=== PATIENT | female | born 1975 | race Caucasian/White ===

== ENCOUNTER 2018-04-03 06:40 | Inpatient (IN) | payer BC ==
[~2018-04-03 06:40] MED LIST: Bupivacaine 0.5%/EPINEPHrine 1:200,000 50 ML MDV ONE
[2018-04-03] MEDS ORDERED: Scopolamine 1.5 MG Transdermal Patch TOP SCH (07:30)
[2018-04-03] MEDS ORDERED: cefOXitin 2 GM in Sodium Chloride 0.9% 50 ML IV ONE (07:30)
[2018-04-03] MEDS ORDERED: Celecoxib 200 MG Cap PO ONE (07:30)
[2018-04-03] MEDS ORDERED: Dextrose 5%-Lactated Ringers 1,000 ML IV SCH (07:30)
[2018-04-03] MEDS ORDERED: Acetaminophen 500 MG Tab PO ONE (07:30)
[2018-04-03] MEDS ORDERED: Gabapentin 300 MG Cap PO ONE (07:30)
[2018-04-03] MEDS ORDERED: Midazolam 1 MG/ML 2 ML SDV ONE (08:41)
[2018-04-03] MEDS ORDERED: fentaNYL 250 MCG/5 ML SDV ONE (08:41)
[2018-04-03] MEDS ORDERED: Succinylcholine 200 MG/10 ML MDV ONE (08:42)
[2018-04-03] MEDS ORDERED: Ondansetron 4 MG/2 ML SDV ONE (08:42)
[2018-04-03] MEDS ORDERED: Dexamethasone 4 MG/ML SDV ONE (08:42)
[2018-04-03] MEDS ORDERED: Rocuronium 50 MG/5 ML Vial ONE (08:42)
[2018-04-03] MEDS ORDERED: Glycopyrrolate 0.2 MG/ML 5 ML MDV ONE (08:42)
[2018-04-03] MEDS ORDERED: Propofol 200 MG/20 ML SDV ONE (08:42)
[2018-04-03] MEDS ORDERED: Neostigmine Methylsulfate 1 MG/ML 5 ML Syringe ONE (08:42)
[2018-04-03] MEDS ORDERED: Lidocaine 2% 100 MG/5 ML Syringe IVPUSH ONE (08:45)
[2018-04-03] MEDS ORDERED: Ropivacaine 42 ML, Dexamethasone 8 MG, EPINEPHrine 0.4 MG, Sodium Chloride 0.9% 35.6 ML NERVRT ONE ×4 (08:45)
[2018-04-03] MEDS ORDERED: Ketamine 500 MG/5 ML MDV IV ONE (08:45)
[2018-04-03] MEDS: Lidocaine 0.4%/D5W 2 GM/500 ML BAG IV SCH ×2 (09:22→12:04)
[2018-04-03] MEDS ORDERED: Meropenem 500 MG SDV ONE (09:29)
[2018-04-03] MEDS ORDERED: hydrOXYzine HCl 100 MG/2 ML SDV IM ONE (10:40)
[2018-04-03] MEDS ORDERED: fentaNYL 100 MCG/2 ML SDV IVPUSH ONE (10:40)
[2018-04-03] MEDS ORDERED: diphenhydrAMINE 50 MG/ML SDV IVPUSH PRN (12:00)
[2018-04-03] MEDS ORDERED: Metoclopramide 10 MG/2 ML SDV IVPUSH PRN (12:00)
[2018-04-03] MEDS ORDERED: Labetalol 20 MG/4 ML Syringe IVPUSH PRN (12:00)
[2018-04-03] MEDS ORDERED: Ondansetron 4 MG/2 ML SDV IVPUSH PRN (12:00)
[2018-04-03] MEDS: Dextrose 5%-Lactated Ringers 1,000 ML IV SCH (12:04)
[2018-04-03] MEDS: Gabapentin 250 MG/5 ML Solution ML 470 ML Bottle PO SCH ×2 (13:09→20:01)
[2018-04-03] MEDS: hydrOXYzine HCl 100 MG/2 ML SDV IM PRN (13:09)
[2018-04-03] MEDS: Pantoprazole 40 MG Vial IVPUSH SCH (14:03)
[2018-04-03] MEDS: cefOXitin 2 GM in Sodium Chloride 0.9% 50 ML IV SCH ×2 (14:06→20:01)
[2018-04-03] MEDS: Acetaminophen Soln 650 MG/20.3 ML UD Cup PO SCH ×2 (16:05→22:04)
[2018-04-03] MEDS: MVI, Adult with Vitamin K 10 ML, Thiamine 100 MG, Chromium/Copper/Mang/Selen/Zn 1 ML in... IV SCH ×4 (17:49)
[2018-04-03] MEDS: Heparin Sodium 5,000 Units/ML Vial SUBCUT SCH (17:51)
[2018-04-04] MEDS: Dextrose 5%-Lactated Ringers 1,000 ML IV SCH ×3 (00:07→14:49)
[2018-04-04] MEDS: hydrOXYzine HCl 100 MG/2 ML SDV IM PRN (01:59)
[2018-04-04] MEDS: cefOXitin 2 GM in Sodium Chloride 0.9% 50 ML IV SCH (02:00)
[2018-04-04] MEDS ORDERED: Iohexol 647 MG/ML 50 ML SDV PO STA (03:38)
[2018-04-04] MEDS: Acetaminophen Soln 650 MG/20.3 ML UD Cup PO SCH ×4 (04:28→22:15)
[2018-04-04] MEDS: Heparin Sodium 5,000 Units/ML Vial SUBCUT SCH ×2 (06:13→17:57)
[2018-04-04] MEDS ORDERED: Ondansetron 4 MG Tab.DIS PO PRN (07:36)
--- NOTE | 2018-04-04 08:56 | CR ---
UGI wo KUB HISTORY: eval R -Y GBP FINDINGS: After administration of oral contrast, upright views were obtained. Post operative changes gastric bypass. Surgical drains in place. No evidence for leak. Contrast passes freely into proximal small bowel loops. Surgical clips right upper quadrant. IMPRESSION: No evidence for leak or obstruction.
[2018-04-04] MEDS: Celecoxib 200 MG Cap PO SCH (08:59)
[2018-04-04] MEDS: SCOPOLAMINE PATCH CHECK TOP SCH (09:01)
[2018-04-04] MEDS: Gabapentin 250 MG/5 ML Solution ML 470 ML Bottle PO SCH ×3 (09:10→20:27)
[2018-04-04] MEDS: hydrOXYzine HCl 25 MG Tab PO PRN ×2 (14:48→19:13)
[2018-04-04] MEDS: Pantoprazole 40 MG Vial IVPUSH SCH (14:48)
[2018-04-04] MEDS: MVI, Adult with Vitamin K 10 ML, Thiamine 100 MG, Chromium/Copper/Mang/Selen/Zn 1 ML in... IV SCH ×4 (16:16)
--- NOTE | 2018-04-04 16:40 | PN ---
DATE OF SERVICE: 04/04/2018 SUBJECTIVE: Lulu is postop day one. She reports her pain is controlled. She has been up, ambulating. Vital signs have been stable. Oral intake 270. Urine output 2049 and LURDES drain put out 15 mL of a light pink serosanguineous drainage. REVIEW OF SYSTEMS: Remainder of review of systems is negative for any pertinent positives and negatives. OBJECTIVE: GENERAL: Lulu Clifford is a 43-year-old female. She is alert and orientated. VITAL SIGNS: TPR 96.6, 68, 16, blood pressure 98/55. HEENT: Negative. NECK: Supple. HEART: Regular rate and rhythm. LUNGS: Clear. ABDOMEN: Dressings are dry and intact. Abdominal binder is on. EXTREMITIES: Without peripheral edema. SCDs are on. ASSESSMENT: 1. Laparoscopy turned to laparotomy with reduction of small bowel volvulus and closure of internal hernia. 2. Revision of the JJ component of the Bryce-en-Y gastric bypass. 3. Excision of peritoneal nodule. 4. Partial small bowel obstruction associated with small bowel volvulus, fixed stricture at the JJ, and peritoneal nodule overlying proximal ileum. Date of surgery 04/03/2018. Surgeon, Geronimo Long M.D. PLAN: 1. Decrease IV to 100 mL per hour. 2. Dressing off, may shower. 3. Step 4 gastric bypass diet. 4. Zofran ODT 4 mg q.4 hours p.r.n. nausea. 5. Good pulmonary toilet. 6. We will evaluate p.r.n. or in a.m. Ibis Barrientos PA-C /[id number]
[2018-04-04] MEDS: Cyclobenzaprine 10 MG Tab PO PRN (22:17)
[2018-04-05] MEDS: Dextrose 5%-Lactated Ringers 1,000 ML IV SCH ×2 (02:26→12:41)
[2018-04-05] MEDS: hydrOXYzine HCl 25 MG Tab PO PRN ×3 (04:09→21:56)
[2018-04-05] MEDS: Acetaminophen Soln 650 MG/20.3 ML UD Cup PO SCH ×4 (04:09→21:58)
[2018-04-05] MEDS: Heparin Sodium 5,000 Units/ML Vial SUBCUT SCH ×2 (06:19→17:37)
[2018-04-05] MEDS: Cyclobenzaprine 10 MG Tab PO PRN ×2 (07:22→17:37)
[2018-04-05] MEDS: Celecoxib 200 MG Cap PO SCH (07:22)
[2018-04-05] MEDS ORDERED: Magnesium Hydroxide 400 MG/5 ML Susp 30 ML Cup PO ONE (08:30)
[2018-04-05] MEDS ORDERED: Cyanocobalamin (Vitamin B12) 1,000 MCG/ML SDV IM ONE (09:00)
--- NOTE | 2018-04-05 09:05 | PN ---
DATE OF SERVICE: 04/05/2018 SUBJECTIVE: Lulu has been up ambulating. Vital signs stable. Pain has been managed with Flexeril, Atarax, and Vistaril along with Tylenol and Celebrex. She is not passing any flatus. Vital signs otherwise have been stable. Oral intake adequate at 1380 and output 2550. REVIEW OF SYSTEMS: Remainder of review of systems negative for any pertinent positives and negatives. OBJECTIVE: GENERAL: Lulu Clifford is a 43-year-old female. VITAL SIGNS: TPR is 97.9, 68, 16, blood pressure 105/57. HEENT: Negative. NECK: Supple. HEART: Regular rate and rhythm. LUNGS: Clear. ABDOMEN: Dressings dry and intact. Abdominal binder is on. EXTREMITIES: Without peripheral edema. ASSESSMENT: Laparoscopy turned to laparotomy with reduction of small bowel volvulus and closure of internal hernia, revision of JJ component of the Bryce-en-Y gastric bypass surgery, excision of peritoneal nodule for partial small bowel obstruction associated with small bowel volvulus, fixed stricture at the JJ and peritoneal nodule overlying proximal ileum. Date of surgery 04/03/2018, Geronimo Long MD. PLAN: Milk of magnesia 30 mL now, followed by Dulcolax 2 tablets 1 hour later, Senna Plus 2 at bedtime. Good pulmonary toilet. We will evaluate p.r.n. or in a.m. Ibis Brarientos PA-C /[id number]
[2018-04-05] MEDS: Gabapentin 250 MG/5 ML Solution ML 470 ML Bottle PO SCH ×3 (09:17→21:57)
[2018-04-05] MEDS: SCOPOLAMINE PATCH CHECK TOP SCH (09:18)
[2018-04-05] MEDS ORDERED: Bisacodyl 5 MG Tab PO ONE (09:30)
[2018-04-05] MEDS: Pantoprazole 40 MG Delayed-Release Granules 1 Packet PO SCH (13:35)
[2018-04-05] MEDS: MVI, Adult with Vitamin K 10 ML, Thiamine 100 MG, Chromium/Copper/Mang/Selen/Zn 1 ML in... IV SCH ×4 (17:37)
[2018-04-06] MEDS: Cyclobenzaprine 10 MG Tab PO PRN ×2 (03:01→13:38)
[2018-04-06] MEDS: Acetaminophen Soln 650 MG/20.3 ML UD Cup PO SCH ×4 (03:35→21:10)
[2018-04-06] MEDS: Dextrose 5%-Lactated Ringers 1,000 ML IV SCH (03:37)
[2018-04-06] MEDS: Heparin Sodium 5,000 Units/ML Vial SUBCUT SCH ×2 (06:39→17:57)
[2018-04-06] MEDS ORDERED: Polyethylene Glycol 3350 Powder 119 GM Bottle PO ONE (08:06)
[2018-04-06] MEDS: Gabapentin 250 MG/5 ML Solution ML 470 ML Bottle PO SCH ×3 (08:37→21:10)
[2018-04-06] MEDS: Celecoxib 200 MG Cap PO SCH (08:37)
--- NOTE | 2018-04-06 11:54 | PN ---
DATE OF SERVICE: 04/06/2018 SUBJECTIVE: Lulu states her pain is controlled. She has not had a bowel movement yet. She is starting to pass a small amount of flatus. REVIEW OF SYSTEMS: Remainder of review of systems negative for any pertinent positives and negatives. OBJECTIVE: GENERAL: Lulu Clifford is a 43-year-old female. VITAL SIGNS: TPR is 96.9, 77, 16, and blood pressure 106/64. HEENT: Negative. NECK: Supple. HEART: Regular rate and rhythm. LUNGS: Clear. ABDOMEN: [place] are intact. She has a midline LURDES drain. She has been draining a light red drainage, scant amounts, there appears to be about 15 mL in the LURDES drain right now. Abdominal binder has been on. EXTREMITIES: Without peripheral edema. ASSESSMENT: Laparoscopy turned to laparotomy, reduction of small bowel volvulus, and closure of internal hernia; revision of the jejunojejunal component of the Bryce-en-Y gastric bypass surgery; excision of peritoneal nodule for partial small bowel obstruction associated with small bowel volvulus; fixed stricture at the jejunojejunal; and peritoneal nodule overlying the proximal ileum. Date of surgery 04/03/2018, Geronimo Long MD. PLAN: 1. Rx MiraLAX 119 g in 32 ounces of Gatorade. 2. Teach the patient to strip, drain, measure, and record LURDES drain 4 times a day and bring record to clinic appointment. 3. Plan discharge after the patient has a bowel movement. 4. We will evaluate p.r.n. or in the a.m. Ibis Barrientos PA-C /[id number]
[2018-04-06] MEDS: Pantoprazole 40 MG Delayed-Release Granules 1 Packet PO SCH (13:36)
[2018-04-07] MEDS: Acetaminophen Soln 650 MG/20.3 ML UD Cup PO SCH ×2 (03:00→10:33)
[2018-04-07] MEDS: Heparin Sodium 5,000 Units/ML Vial SUBCUT SCH (05:30)
[2018-04-07 07:55] VITALS: BP 114/60
[2018-04-07] MEDS: Celecoxib 200 MG Cap PO SCH (07:58)
[2018-04-07] MEDS: Gabapentin 250 MG/5 ML Solution ML 470 ML Bottle PO SCH (08:03)
--- NOTE | 2018-04-08 13:42 | OR ---
DATE OF PROCEDURE: 04/03/2018 PREOPERATIVE DIAGNOSIS: Partial small bowel obstruction. POSTOPERATIVE DIAGNOSES: 1. Partial small bowel obstruction associated with: a. Small bowel volvulus. b. Fixed stricture at jejunojejunostomy. c. Peritoneal nodule overlying proximal ileum. OPERATIVE PROCEDURES: 1. Diagnostic laparoscopy converted to laparotomy with: a. Reduction of small bowel volvulus and closure of internal hernia (11101). b. Revision of jejunojejunostomy component of Bryce-en-Y gastric bypass (04262). c. Excision of peritoneal nodule overlying the proximal ileum (62312). ANESTHESIA: General. VENTURE CAPITAL ANALYST: Ibis Barrientos PA-C. INDICATION FOR PROCEDURE: This is a 43-year-old status post previous Bryce-en-Y gastric bypass presenting with a picture of a partial small bowel obstruction. After preoperative evaluations and discussion, she wished to proceed with a diagnostic laparoscopy with possible laparotomy, lysis of adhesions, reduction of small bowel obstruction, and possible bowel resection were all reviewed. The potential risks including bleeding, infection, leaks from various GI tract closures, problems with recurrence of the problem over time as well as possibility of cardiopulmonary, septic, or hemorrhagic complications leading to were discussed, and the patient wishes to proceed. DETAILS OF PROCEDURE: The patient was taken to the operating room. After general endotracheal anesthesia was induced, the Packer catheter was inserted and the abdomen prepped and draped. In the left lower quadrant, a transverse incision was made and peritoneal cavity entered under direct vision with an Optiview trocar, inflated to 15 mmHg pressure with CO2. Following this, two 5-mm trocars were placed, one in the right and one in the left mid abdomen and general exploration was undertaken. Initially bilateral midabdominal transversus abdominis plane blocks were placed using standard solution with direct visualization of the needle tip in the correct plane on each side. The small bowel was then traced out. There appeared to be a complex volvulus present. Initial laparoscopic attempts to reduce this were unsuccessful, appeared to be fairly tightly wedged in terms of the bowel through the mesenteric defect. The decision was made to proceed with conversion to an open approach and the trocars were removed, the peritoneal cavity deflated. A midline incision from the umbilicus upwards towards xiphoid roughly a handsbreadth of length was made and carried down through the full-thickness abdominal wall and peritoneal cavity entered under direct vision with an Optiview trocar. At that point, the volvulus was able to be manually reduced, this being the volvulus between the region of the jejunojejunostomy and mesentery. The bowel on this side of volvulus was slightly dusky in terms of venous hypertension and became entirely pink and well perfused in appearance once this was reduced. At this point with the volvulus reduced, the jejunojejunostomy was inspected. The patient was noted to have what appeared to be a fixed stricture, probably from chronic angulation at the point where the Bryce limb entered the jejunojejunostomy. This appeared to be a fixed stricture and would require revision of that component of the Bryce-en-Y gastric bypass. Given this, the Bryce limb was divided off the jejunojejunostomy flushed with the anastomosis with a VANCE stapler. A small amount of bowel was then resected to allow adequate mobility of the small bowel for subsequent anastomosis. The mesentery was divided with mesenteric load and the small bowel resection which amounted to roughly another 10 cm was accomplished with VANCE oquendo load. At this point, the reconstruction of the jejunojejunostomy was accomplished with anastomosis of the bowel roughly at 30 cm distal to the point of the original anastomosis. The jejunojejunostomy was then reconstructed with a xasp-az-gyzu anastomosis between the new end of the Bryce limb and the bowel that had previously been the common limb with internal firing of 60 mm stapler, common opening was then closed with the same stapler. And angles were anastomosed, and reinforced with some 3-0 Vicryl stitch. The mesenteric defect underlying the jejunojejunostomy was then closed off with a running 2-0 silk stitch. In preparation for the final anastomosis, the limb lengths were counted off. The patient at this time was noted to have a Bryce limb of 120 cm, a new common limb of 350 cm, and a biliopancreatic limb now in the range of 400 cm. During the course of tracing of the limb lengths, the patient was noted to have a firm nodule on the junction of the mesentery and surface of the small bowel at the level of the mid ileum. This was excised by means of transversely oriented vascular stapler and that specimen then delivered from the field. At this point, no further problems were noted. The patient had adequate omentum to cover the incision and this was brought down. Midline incision was then approximated with a #2 Vicryl stitch. The subcutaneous tissue was then drained with a 10-Malagasy round Navdeep- Chavez drain placed through a stab wound inferior to the main incision and the subcutaneous tissue was then approximated with 2 layers of 3-0 Vicryl stitch and the skin with josé luis. The drain was affixed with 4-0 Vicryl stitch as well. The patient was taken to the recovery room in satisfactory condition. Prior to closure of the injection, Marcaine with epinephrine along the incision line was also performed. Physician permit review assistant, Ibis Barrientos played an essential role in assisting in this case, helping to position the patient, retract the structures as needed as well as suturing and cutting sutures when indicated as well as applying surgical josé luis. Her presence improved the patient's safety and decreased the operative time. Geronimo Long MD /[id number]
--- NOTE | 2018-04-09 12:44 | DISCH ---
FINAL DIAGNOSES: Partial small bowel obstruction associated with: 1. Small bowel volvulus. 2. Fixed stricture at jejunojejunostomy. 3. Peritoneal nodule overlying proximal ileum. SECONDARY DIAGNOSES: 1. Bariatric surgery status. 2. History of hypertension. 3. History of dyslipidemia. 4. History of arthritis. 5. History of asthma. OPERATIVE PROCEDURES: Diagnostic laparoscopy converted to laparotomy with reduction of small bowel volvulus and closure of internal hernia, revision of the jejunojejunostomy component Bryce-en-Y gastric bypass, and excision of peritoneal nodule overlying the proximal ileum that was done on 04/03. SUMMARY: This is a 43-year-old, status post previous Bryce-en-Y gastric bypass, presenting with postprandial crampy abdominal pain, clinically appeared to most likely have a partial small bowel obstruction. At the time of initial diagnostic laparoscopy, the patient was noted to have volvulus which was quite difficult to manage in terms of mobility of the bowel through the defect. Given this surgery converted to an open laparotomy, volvulus was reduced. After reduction, she had a thick stricture at jejunojejunostomy component of the Bryce-en-Y gastric bypass. This area was revised with division of the bryce limb flush with the jejunojejunostomy, and then realigning that roughly 37 cm more distally. Patient was also noted to have a peritoneal nodule over the proximal ileum, which was excised. The pathology on that is pending. Postoperatively, the patient's only issue has to do with some slow GI tract return of function. She is now moving her bowels satisfactorily. She will be discharged home. At this point, she is not on any narcotics and will be going home on Tylenol 650 q.4 hours p.r.n., gabapentin 300 mg t.i.d., and Celebrex 200 mg p.o. daily with latter two medications given two week supply. Otherwise she can continue her home medications. Follow up with Ibis Barrientos PA-C, [facility] in [place] next Tuesday 04/10. She does have a LRUDES drain present in the incision, which will be left in place until that time.
== END 2018-04-07 11:15 | disposition home or self-care (01) | DRG 223 ==
LOC: JP.MS 06:40 → JP.SDS 06:40 → EDSTATUS 10:00 → JP.2SS 10:32
PROVIDERS: ADMIT Surgery; ATTEND Surgery
PROC: 0DSA0ZZ Reposition Jejunum, Open Approach (ICD-10-PCS; principal; 2018-04-03)
PROC: 3E0T3BZ Introduction of Anesthetic Agent into Peripheral Nerves and Plexi, Percutaneous Approach (ICD-10-PCS; 2018-04-03)
PROC: 0DJD4ZZ Inspection of Lower Intestinal Tract, Percutaneous Endoscopic Approach (ICD-10-PCS; 2018-04-03)
PROC: 0DBA0ZX Excision of Jejunum, Open Approach, Diagnostic (ICD-10-PCS; 2018-04-03)
PROC: 0DBB0ZX Excision of Ileum, Open Approach, Diagnostic (ICD-10-PCS; 2018-04-03)
PROC: 0DQV0ZZ Repair Mesentery, Open Approach (ICD-10-PCS; 2018-04-03)
DX: K56.2 Volvulus (principal); K56.690 Other partial intestinal obstruction; K66.8 Other specified disorders of peritoneum; Z53.31 Laparoscopic surgical procedure converted to open procedure; K46.9 Unspecified abdominal hernia without obstruction or gangrene; I10 Essential (primary) hypertension; J45.909 Unspecified asthma, uncomplicated; E55.9 Vitamin D deficiency, unspecified; K21.9 Gastro-esophageal reflux disease without esophagitis; Z98.84 Bariatric surgery status; Z98.0 Intestinal bypass and anastomosis status; E78.5 Hyperlipidemia, unspecified; M19.90 Unspecified osteoarthritis, unspecified site; Z88.6 Allergy status to analgesic agent; Z91.040 Latex allergy status; Z88.5 Allergy status to narcotic agent; Z88.0 Allergy status to penicillin; Z88.8 Allergy status to other drugs, medicaments and biological substances
CPT/HCPCS: 74240; 74240-26; 82962; 88305; 88307; 88313; A9270-GY; C9113; J0171; J0330; J0694; J1100; J1644; J2001; J2185; J2250; J2405; J2704; J2710; J2795; J3010; J3410; J3411; J3420; J7030; J7040; J7042; J7050; Q9967